=== PATIENT | female | born 1960 | race Caucasian/White ===

== ENCOUNTER → 2017-12-06 09:52 | Outpatient (CLI) | payer OTHER, SELFPAY ==
[2017-12-06 11:05] LABS: TSH w/ Reflex to FT4 1.29 uIU/mL (0.47-4.68)
== END ==
PROVIDERS: PCP Specialist; Visit Provider Specialist
DX: E03.9 Hypothyroidism, unspecified (principal)
CPT/HCPCS: 36415; 84443

== ENCOUNTER → 2019-05-21 12:59 | Outpatient (CLI) | payer OTHER, SELFPAY | PROVIDERS: PCP Specialist; Visit Provider Specialist | DX: R39.89 Other symptoms and signs involving the genitourinary system (principal) | CPT/HCPCS: 87086 ==